=== PATIENT | male | born 1960 | race Caucasian/White ===

== ENCOUNTER 2018-04-02 11:14 | Day surgery (SDC) | payer BC ==
[~2018-04-02] VITALS: Ht 172.7 cm; Wt 84.5 kg
[~2018-04-02 11:14] MED LIST: CEPH500 PO; Cleocin HCl150 MG PO; ESCI20; ESCI20 PO; FINA5; FLUV50 PO; GLUC500; HYDACE5 PO; LUVOX PO; MELA3; METO100ER PO; MULT50L; NABU500 PO; NAPR500 PO; NIAC500ER PO; NORT25 PO; TAMS.4ER; TERB250 PO; TRIA80TC; XARELTO20 MG PO
== END 2018-04-02 13:35 | disposition home or self-care (01) ==
LOC: ORSCSDS 11:14
PROVIDERS: Surgery
PROC: 0DJD8ZZ Inspection of Lower Intestinal Tract, Via Natural or Artificial Opening Endoscopic (ICD-10-PCS; principal; 2018-04-02 12:30)
DX: Z12.11 Encounter for screening for malignant neoplasm of colon (principal); Z86.010 Personal history of colon polyps; G47.33 Obstructive sleep apnea (adult) (pediatric); I10 Essential (primary) hypertension; E78.5 Hyperlipidemia, unspecified; Z79.899 Other long term (current) drug therapy
CPT/HCPCS: J0330; J1980; J2405

== ENCOUNTER → 2020-07-26 | Outpatient (CLI) | payer OTHER ==
[2020-07-26 09:13] LABS: BASOPHILS ABSOLUTE AUTO 0.04 K/mm3 (0.00-0.23); BASOPHILS PERCENT AUTO 1 % (0-2); EOSINOPHILS ABSOLUTE AUTO 0.04 K/mm3 (0.00-0.68); EOSINOPHILS PERCENT AUTO 1 % (0-6); Hematocrit 40.2 % (37.0-53.0); Hemoglobin 14.1 g/dL (13.5-17.5); IMMATURE GRAN ABSOLUTE AUTO 0.01 K/mm3 (0.00-0.10); IMMATURE GRAN PERCENT AUTO 0 % (0-1); LYMPHOCYTES ABSOLUTE AUTO 0.86 K/mm3 (0.84-5.20); LYMPHOCYTES PERCENT AUTO 27 % (21-46); MONOCYTES ABSOLUTE AUTO 0.26 K/mm3 (0.16-1.47); MONOCYTES PERCENT AUTO 8 % (4-13); Mean Corpuscular HGB 31.5 pg (26.0-34.0); Mean Corpuscular HGB Conc 35.1 g/dL (31.5-36.5); Mean Corpuscular Volume 90 fL (80-100); Mean Platelet Volume 8.8 fL (9.1-12.4); NEUTROPHILS PERCENT AUTO 62 % (41-73); Platelet Count 170 K/mm3 (150-400); RDW Standard Deviation 39.8 fL (35.1-46.3); Red Blood Cell Count 4.47 M/mm3 (4.30-5.90); White Blood Cell Count 3.21 K/mm3 (4.00-11.30)
[2020-07-26 09:44] LABS: Alanine Aminotransfer (ALT/SGP 26 U/L (12-78); Albumin, Blood 3.9 g/dL (3.4-5.0); Albumin/Globulin Ratio 1.4 (0.8-1.8); Alk Phos 56 U/L (40-126); Anion Gap 4 mmol/L (6-16); Aspartate Aminotrans (AST/SGOT 18 U/L (12-37); Bilirubin, Total 0.5 mg/dL (0.1-1.0); Blood Urea Nitrogen 17 mg/dL (8-24); Bun/Creatinine Ratio 18.5 (12.0-20.0); CHOL/HDL RATIO 3.4; CO2, Blood 30 mmol/L (21-32); Calcium, Blood 8.2 mg/dL (8.5-10.1); Chloride, Blood 103 mmol/L (98-108); Cholesterol 161 mg/dL (50-200); Creatinine, Blood 0.92 mg/dL (0.60-1.20); Globulin, Blood 2.7 g/dL (2.2-4.0); Glomerular Filtration Rate >60 (60-); Glucose, Blood 89 mg/dL (70-99); HDL Cholesterol 48 mg/dL (>39); Low Density Lipoprotein Chol 97 mg/dL (<110); Potassium, Blood 4.3 mmol/L (3.5-5.5); Sodium, Blood 137 mmol/L (136-145); Total Protein, Blood 6.6 g/dL (6.4-8.2); Triglycerides 79 mg/dL (30-160); Very Low Density Lipoprot Chol 15 mg/dL (6-32)
[2020-07-26 14:01] LABS: Prostate Specific Antigen 0.086 ng/mL (0.000-4.000)
== END ==
LOC: LAB SHORT 09:06 → LAB EV 09:06
PROVIDERS: Nurse Practitioner
DX: E78.2 Mixed hyperlipidemia (principal); N40.1 Benign prostatic hyperplasia with lower urinary tract symptoms
CPT/HCPCS: 36415; 80053; 80061; 85025; G0103

== ENCOUNTER 2022-11-15 12:03 | Day surgery (SDC) | payer OTHER ==
[~2022-11-15] VITALS: Ht 172.7 cm; Wt 73.2 kg
[2022-11-15] MEDS ORDERED: LOSA50 PO (14:15)
[2022-11-15] MEDS ORDERED: BUSPIRONE HCL7.5 M1 PO (14:17)
== END 2022-11-15 16:25 | disposition home or self-care (01) ==
LOC: ORSCSDS 12:03
PROVIDERS: Surgery
PROC: 0DBM8ZX Excision of Descending Colon, Via Natural or Artificial Opening Endoscopic, Diagnostic (ICD-10-PCS; principal; 2022-11-15 15:15)
DX: R63.4 Abnormal weight loss (principal); Z86.010 Personal history of colon polyps; K64.1 Second degree hemorrhoids; G47.33 Obstructive sleep apnea (adult) (pediatric); I10 Essential (primary) hypertension; E78.1 Pure hyperglyceridemia; Z79.899 Other long term (current) drug therapy
CPT/HCPCS: 88305; J0330; J0461; J2405; J2704; J7120